=== PATIENT | female | born 2005 | race African-American/Black ===

== ENCOUNTER 2023-07-16 11:53 | Observation (INO) | payer BC, SELFPAY ==
[2023-07-16 12:10] VITALS: BMI 26.4
--- NOTE | 2023-07-16 12:10 | OBADM ---
This patient, Rahel Calderon, admitted to the OB room OB Post 113 for observation. Patient/family oriented to hospital policies and general routines including ID bracelet, bed and alarms, visiting hours, pain management, procedures, bathroom and other care routines, personal items, smoking policy, room service/diet, and visiting hours. Patient/Family are encouraged to report perceived risks to care and to ask questions if they do not understand what they are told or what they should do.
[2023-07-16 14:00] VITALS: BP 145/86; PULSE 116
[2023-07-16 14:15] VITALS: BP 123/85; PULSE 102
[2023-07-16 14:30] VITALS: BP 138/98; PULSE 108
--- NOTE | 2023-07-16 14:32 | PC.NURSE ---
Dr. Shepherd informed of 2 variable decels down to 120 with baseline of 145 around 1300 in otherwise totally reactive tracing. Order received to discharge pt to home.
[2023-07-16 14:36] VITALS: BP 140/84; PULSE 105
--- NOTE | 2023-07-17 13:00 | PM.OBTRLD ---
OB - Triage/Final Diagnosis Visit Information Comments/Additional reasons for admission: I have assessed the risk for this patient, Rahel Calderon, and determined that she would benefit from observation care. Evaluation Vital signs: Vital Signs - 24 hr 07/16/23 14:00 07/16/23 14:15 07/16/23 14:30 Pulse Rate 116 H 102 H 108 H Blood Pressure 145/86 H 123/85 138/98 H 07/16/23 14:36 Pulse Rate 105 H Blood Pressure 140/84 Final Diagnosis (1) Variable deceleration: Status: Acute
== END 2023-07-16 15:13 | disposition home or self-care (01) ==
PROVIDERS: Admitting Provider Obstetrics & Gynecology; Visit Provider Obstetrics & Gynecology
DX: O36.8330 Maternal care for abnormalities of the fetal heart rate or rhythm, third trimester, not applicable or unspecified (principal); Z3A.35 35 weeks gestation of pregnancy
CPT/HCPCS: G0378; G0379

== ENCOUNTER 2023-07-28 06:27 | Inpatient (IN) | payer BC, SELFPAY ==
[2023-07-28] VITALS (56 sets, daily range): BP systolic 109–150; BP diastolic 73–118; PULSE 66–151; RESP 16; TEMP 36.1–38.2; O2SAT 85–100; BMI 26.8
--- NOTE | 2023-07-28 07:18 | LDADM ---
This patient, Rahel Calderon, was admitted to Labor/Delivery/Recovery 105 on 07/28/23 at 06:27. Plans for labor, pain management and were discussed with patient. Patient/family oriented to hospital policies and general routines including ID bracelet, bed and alarms, visiting hours, pain management, procedures, bathroom and other care routines, personal items, smoking policy, room service/diet and guest tray routines, security routines, and visiting hours. Patient/Family are encouraged to report perceived risks to care and to ask questions if they do not understand what they are told or what they should do. See OBIX for further documentation.
[2023-07-28 07:40] LABS: Basophils Percent Auto 0.4 % (0.2-1.2); Eosinophils Absolute Auto 0.1 K/mm3 (0-0.3); Eosinophils Percent Auto 0.7 % (0-4.4); Hematocrit 31.1 % (37.0-47.0); Hemoglobin 10.7 g/dL (12.0-15.0); Immature Granulocyte Absolute 0.06 K/mm3 (0.00-0.031); Immature Granulocyte Percent A 0.5 % (0-0.5); Lymphocytes Absolute Auto 2.43 K/mm3 (0.9-3.2); Mean Corpuscular HGB Conc 34.4 g/dl (32-36); Mean Corpuscular Volume 75.7 fl (80-100); Mean Platelet Volume 10.9 fl (7.4-10.4); Monocytes Absolute Auto 1.1 K/mm3 (0.1-0.6); Neutrophils Absolute Auto 7.3 K/mm3 (1.3-6.7); Neutrophils Percent Auto 66.4 % (45.5-73.1); Platelet Count Result 299 k/mm3 (150-375); Red Blood Count 4.11 M/mm3 (4.2-5.4); Red Cell Distribution Width 15.3 % (11.5-14.5)
[2023-07-28 07:58] LABS: Alanine Aminotransferase 16 U/L (6-35); Albumin Level 3.8 g/dL (3.7-5.6); Alkaline Phosphatase 163 U/L (45-116); Anion Gap 9 mmol/L (8-16); Aspartate Amino Transferase 23 U/L (14-36); Bilirubin,Total 0.3 mg/dL (0.2-1.3); Blood Urea Nitrogen 4 mg/dL (8-21); Carbon Dioxide 22 mmol/L (22-30); Chloride 107 mmol/L (98-107); Estimated Glomerular Filt Rate > 60; Glucose 93 mg/dL (65-110); Potassium 3.3 mmol/L (3.4-5.0); Sodium 138 mmol/L (134-143); Uric Acid 4.4 mg/dL (3.0-5.9)
[2023-07-28 09:23] LABS: Amphetamine Screen Urine Negative (Negative); Barbiturate Screen Urine Negative (Negative); Benzodiazepines Screen Urine Negative (Negative); Cannabinoid Screen Urine Positive (Negative); Cocaine Screen Urine Negative (Negative); Methadone Screen Urine Negative (Negative); Opiate Screen Urine Negative (Negative); Phencyclidine Screen Urine Negative (Negative)
[2023-07-28] MEDS: miSOPROStol 25 MCG TABLET 50 MCG PO (09:52)
[2023-07-28] MEDS: LACTATED RINGERS 1,000 ML 125 ML IV CONT ×2 (12:32→15:53)
[2023-07-28 14:31] LABS: Rapid Plasma Reagin Non-Reactive (NonReactive)
[2023-07-28] MEDS: OXYTOCIN 30 UNITS/NS 500 ML 30 UNITS/500 ML BAG IV CONT (14:38)
--- NOTE | 2023-07-28 16:16 | WPDANESEPP ---
Anes - Eval Pre Procedure Procedure: labor epidural Date/Time: 07/28/23 16:16 Preop Diagnosis: labor pain Pre Op Diagnosis: Induction of Labor Patient Data Age: 17 Gender: F Height: 1.63 m Weight: 70.9 kg Last Vital Signs Temp 36.4 C L 07/28/23 10:15 Pulse 88 07/28/23 16:01 Resp 16 07/28/23 10:15 BP 136/87 07/28/23 16:01 Pulse Ox 100 07/28/23 06:58 O2 Del Method Room Air 07/28/23 06:56 Allergies Allergy/AdvReac Type Severity Reaction Status Date / Time No Known Allergies Allergy Verified 07/15/23 12:17 Home Medications Medication Instructions Recorded Confirmed Type vits no.126-ferrous fum 1 tablet PO DAILY 07/15/23 07/15/23 History 28 mg iron-folic acid 800 mcg tablet (Classic ) Laboratory Tests 07/28/23 07/28/23 07:26 08:57 WBC 11.0 H K/mm3 (4.5-10.0) RBC 4.11 L M/mm3 (4.2-5.4) Hgb 10.7 L g/dL (12.0-15.0) Hct 31.1 L % (37.0-47.0) MCV 75.7 L fl (80-100) MCH 26.0 pg (26-34) MCHC 34.4 g/dl (32-36) RDW 15.3 H % (11.5-14.5) Plt Count 299 k/mm3 (150-375) MPV 10.9 H fl (7.4-10.4) Immature Gran % (Auto) 0.5 % (0-0.5) Neut % (Auto) 66.4 % (45.5-73.1) Lymph % (Auto) 22.0 % (18.3-44.2) [place] % (Auto) 10.0 H % (2.6-8.5) Eos % (Auto) 0.7 % (0-4.4) Baso % (Auto) 0.4 % (0.2-1.2) Lymph # (Auto) 2.43 K/mm3 (0.9-3.2) [place] # (Auto) 1.1 H K/mm3 (0.1-0.6) Eos # (Auto) 0.1 K/mm3 (0-0.3) Baso # (Auto) 0.0 K/mm3 (0.0-0.1) Abs Immat Gran (auto) 0.06 H K/mm3 (0.00-0.031) Absolute Neuts (auto) 7.3 H K/mm3 (1.3-6.7) Absolute Nucleated RBC 0.0 K/mm3 (0.0-0.012) Nucleated RBC % 0.0 % (0.0-0.2) Sodium 138 mmol/L (134-143) Potassium 3.3 L mmol/L (3.4-5.0) Chloride 107 mmol/L (98-107) Carbon Dioxide 22 mmol/L (22-30) Anion Gap 9 mmol/L (8-16) BUN 4 L mg/dL (8-21) Creatinine 0.50 L mg/dL (0.7-1.0) Estim Creat Clear Calc Not Reportable Estimated GFR > 60 (59 - ) Glucose 93 mg/dL (65-110) Uric Acid 4.4 mg/dL (3.0-5.9) Calcium 9.0 mg/dL (8.9-10.7) Total Bilirubin 0.3 mg/dL (0.2-1.3) AST 23 U/L (14-36) ALT 16 U/L (6-35) Alkaline Phosphatase 163 H U/L (45-116) Total Protein 7.0 g/dL (6.3-8.6) Albumin 3.8 g/dL (3.7-5.6) Urine Opiates Screen Negative (Negative) Urine Methadone Screen Negative (Negative) Ur Barbiturates Screen Negative (Negative) Ur Phencyclidine Scrn Negative (Negative) Ur Amphetamine Screen Negative (Negative) U Benzodiazepines Scrn Negative (Negative) Urine Cocaine Screen Negative (Negative) U Cannabinoids Screen Positive A (Negative) RPR Non-reactive (NonReactive) Blood Type B Positive Antibody Screen Positive Antibody Identification Pending Antigen Identification Pending DONELL, IgG Interpret Not Performed DONELL, Poly Interpret Negative DONELL, Complement Interp Not Performed Patient hx anesthesia problems: none Family hx anesthesia problems: none Results Review: All pre-operative results and documents have been reviewed as part of the pre-operative evaluation. FORMERLY [facility], [facility] Family History Family History Other No pertinent family history Social History Social History Smoking status: Never smoker Second hand tobacco smoke exposure: No Substance use: never Do You Feel Safe in your Home?: Yes Lack of Transportation: No Lack of Food: Never True Current Housing: I Have Housing Concerned About Future Housing: No Difficult
--- NOTE | 2023-07-28 20:14 | PM.IMHP ---
H&P: HPI History of Present Illness Date/Time: 07/28/23 08:14 Chief Complaint: medical induction of labor Narrative: Patient presents for medical induction of labor, indicated for gestational hypertension. She was diagnosed at 34 weeks, labwork has been normal with no evidence of proteinuria. She denies headaches, vision changes, chest pain, dyspnea, RUQ pain or epigastric pain. otherwise complicated by hx of anxiety, HSV, sickle cell trait, and posterior accessory lobe. Review of Systems Review of Systems: All systems reviewed & are unremarkable except as noted in HPI and below PMFSH Family History Family History Other No pertinent family history Social History Social History Smoking status: Never smoker Second hand tobacco smoke exposure: No Substance use: never Do You Feel Safe in your Home?: Yes Lack of Transportation: No Lack of Food: Never True Current Housing: I Have Housing Concerned About Future Housing: No Difficulty Paying Gas/Electric Bills: No Difficulty Paying for Meds: No Currently Unemployed: YES Education: High School Diploma/GED Difficulty w/ Childcare or Family Care: No Spiritual care concerns: No Meds Home Medications and Allergies Home Medications Medication Instructions Recorded Confirmed Type vits no.126-ferrous fum 1 tablet PO DAILY 07/15/23 07/15/23 History 28 mg iron-folic acid 800 mcg tablet (Classic ) Allergies Allergy/AdvReac Type Severity Reaction Status Date / Time No Known Allergies Allergy Verified 07/15/23 12:17 Vital Signs Vital Signs - 24 hr 07/28/23 06:56 07/28/23 06:58 07/28/23 07:39 Temperature 97.4 F L Pulse Rate 96 Respiratory Rate 16 Blood Pressure 127/91 H Pulse Oximetry 100 Oxygen Delivery Room Air 07/28/23 10:09 07/28/23 10:15 07/28/23 11:00 Temperature 97.5 F L Pulse Rate 81 83 Respiratory Rate 16 Blood Pressure 135/86 117/81 Pulse Oximetry Oxygen Delivery 07/28/23 12:00 07/28/23 14:00 07/28/23 15:00 Temperature Pulse Rate 83 92 91 Respiratory Rate Blood Pressure 135/76 132/93 H 128/86 Pulse Oximetry Oxygen Delivery 07/28/23 16:01 07/28/23 16:18 07/28/23 16:19 Temperature Pulse Rate 88 113 H Respiratory Rate Blood Pressure 136/87 150/91 H Pulse Oximetry 85 L 99 Oxygen Delivery 07/28/23 16:20 07/28/23 16:25 07/28/23 16:26 Temperature Pulse Rate Respiratory Rate Blood Pressure Pulse Oximetry 100 100 100 Oxygen Delivery 07/28/23 16:27 07/28/23 16:31 07/28/23 16:33 Temperature Pulse Rate Respiratory Rate Blood Pressure Pulse Oximetry 99 100 100 Oxygen Delivery 07/28/23 16:34 07/28/23 16:38 07/28/23 16:39 Temperature Pulse Rate 83 85 Respiratory Rate Blood Pressure 138/90 132/82 Pulse Oximetry 100 100 Oxygen Delivery 07/28/23 16:39 07/28/23 16:39 07/28/23 16:41 Temperature Pulse Rate 90 Respiratory Rate Blood Pressure 130/83 Pulse Oximetry 100 100 Oxygen Delivery 07/28/23 16:42 07/28/23 16:44 07/28/23 16:45 Temperature Pulse Rate 123 H 82 71 Respiratory Rate Blood Pressure 133/82 113/81 136/83 Pulse Oximetry 100 Oxygen Delivery 07/28/23 16:49 07/28/23 16:54 07/28/23 16:59 Temperature Pulse Rate 87 Respiratory Rate Blood Pressure 137/89 Pulse Oximetry 100 100 99 Oxygen Delivery 07/28/23 17:00 07/28/23 17:15 07/28/23 17:30 Temperature Pulse Rate 86 84 88 Respiratory Rate Blood Pressure 130/92 H 138/96 H 144/99 H Pulse Oximetry 95 Oxygen Delivery 07/28/23 17:50 07/28/23 17:51 07/28/23 17:53 Temperature Pulse Rate 90 96 70 Respiratory Rate Blood Pressure 142/79 H 127/88 115/93 H Pulse Oximetry Oxygen Delivery 07/28/23 18:17 07/28/23 18:3
--- NOTE | 2023-07-28 20:18 | PM.OBPNLAB ---
Pain Control Date/time seen: 07/28/23 4211 Comments: Comfortable with epidural Pelvic Exam Dilation (cm): 4 Effacement (%): 70 station: -2 Amniotic membrane status: Ruptured Status status: Category l Assessment and Plan Comments: FHR Category I AROM performed with clear fluid /-2 Continue induction, will start pitocin PRN
[2023-07-29] VITALS (19 sets, daily range): BP systolic 119–157; BP diastolic 71–145; PULSE 76–118; RESP 16–20; TEMP 36.2–37.4; O2SAT 97–100
[2023-07-29] MEDS: OXYTOCIN 30 UNITS/NS 500 ML 30 UNITS/500 ML BAG 999 UNITS IV CONT
[2023-07-29] MEDS: miSOPROStol 200 MCG TABLET 800 MCG RECTAL (00:10)
[2023-07-29] MEDS: OXYTOCIN 30 UNITS/NS 500 ML 30 UNITS/500 ML BAG 125 UNITS IV CONT (00:36)
--- NOTE | 2023-07-29 01:08 | P.PCNOB_ITS ---
OB - Vaginal Delivery Note Procedure Delivery date: 07/29/23 Events: Gestational Hypertension Induction method: Per Misoprostol Protocol Delivery augmentation: Rupture of Membranes and Pitocin Delivery monitor: External FHT and External Uterine Route of delivery: Episiotomy description: None Laceration Description: Perineal - 1st Degree Delivery repair: vicryl Specimen: No Quantitative Blood Loss (ml): 150 Anesthesia type: Epidural Disposition: Floor Complications: No immediate complications Narrative: See H&P and notes for details on patient's admission and labor. She progressed to complete cervical dilation and at the appropriate time began pushing. With adequate expulsive efforts by the mother, the baby's head was delivered without difficulty. Nuchal cord was not present. The baby's left shoulder was anterior and delivered under the pubic symphysis without difficulty. The posterior shoulder and the rest of the baby delivered without difficulty. The umbilical cord was doubly clamped and cut after 90 seconds of delayed cord clamping. Care of the infant was then assumed by the nursing staff. At the end of the perineal repair, mild uterine atony was noted and cytotec 800mcg was placed rectally with improvement in uterine tone. Mother and are at this time in stable condition and doing well. [place] [facility] Weeks of gestation at delivery: 37 Infant gender: Female Weight (pounds): 7 Weight (ounces): 12 presentation: vertex position: Left Occiput Posterior Placenta delivery description: Expressed Cord Vessel Description: 3 Vessels
--- NOTE | 2023-07-29 02:27 | PC.NURSE ---
Patient transferred to post room #291 per wheelchair from labor and delivery. Support person present. Oriented to unit, room, information board, rooming in, admission packet and security measures. Patient verbalizes understanding.
[2023-07-29] MEDS: ONDANSETRON INJ 4 MG/2 ML VIAL IV PUSH (02:35)
--- NOTE | 2023-07-29 08:17 | PM.OBPNVD ---
OB - PN: Subj Subjective Date/time seen: 07/29/23 08:17 Interval history: PPD#1 Doing well, pain well controlled, minimal cramping Normal lochia No fevers or chills OB - PN: Obj Data Labs 07/28/23 07:26 07/28/23 07:26 Labs: Laboratory Results - last 24 hr 07/28/23 07/28/23 07:26 08:57 Urine Opiates Screen Negative Urine Methadone Screen Negative Ur Barbiturates Screen Negative Ur Phencyclidine Scrn Negative Ur Amphetamine Screen Negative U Benzodiazepines Scrn Negative Urine Cocaine Screen Negative U Cannabinoids Screen Positive A RPR Non-reactive Blood Type B Positive Antibody Screen Positive DONELL, IgG Interpret Not Performed DONELL, Poly Interpret Negative DONELL, Complement Interp Not Performed OB - PN A/P Assessment and Plan (1) Gestational hypertension: Code(s): O13.9 - Gestational [-induced] hypertension without significant proteinuria, unspecified trimester Status: Acute Assessment and Plan: Asymptomatic, BP mild range to normotensive Continue to monitor for development of preeclampsia with severe features (2) (spontaneous vaginal delivery): Code(s): O80 - Encounter for full-term uncomplicated delivery Status: Acute Plan day: 1 Plan: routine care Time Spent With Patient Time: Total time spent is greater than 50% in coordination of care (as documented) at patient's floor/unit and/or counseling patient: Review of Systems Review of Systems: All systems reviewed & are unremarkable except as noted in HPI and below Exam Const: General: comfortable and no acute distress HENMT: Mouth: Yes moist mucous membranes Eyes: General: appearance normal, both eyes and all related structures Resp: Effort & Inspection: normal respiratory effort Cardio: Rate: regular rate Skin: General skin exam: normal color Neuro: Sensory Exam: normal sensation Extrem: General: normal to inspection Psych: Mental Status: mental status grossly normal
--- NOTE | 2023-07-29 11:14 | PC.NURSE ---
[id number] Introductions were made, then consulted with patient to assess needs related to . Discussed with mother her?plans to feed?her infant, the?experience so far, infant is [id number] and mother states has fluid that she needs to get out . Resources provided for inpatient and outpatient services with the feeding sheet, mom/baby guide and name written on the communication board. Mother voiced understanding of information and will call if there is a request for assistance. [id number] Introductions were made, then consulted with patient to assess needs related to . Mother led the conversation with her?plans to feed?her infant and the?experience so far. Encouraged understanding of the benefits of skin to skin (demonstrating unwrapping infant and placing upright on her chest), stimulating with massage touch, changing positions to encourage wakefulness, how to watch for early feeding cues, responsive feeding, feeding on demand (aiming for 8-12 times in 24 hours, about every 2-3 hours), milk production, building/maintaining a milk supply, duration of feeding, signs of adequate intake/output and how to record on the feeding sheet. Mother works well with her infant with encouragement, education and desires to attempt laid-back position again like she did last night. After infant attempted we also reviewed positioning and ear, shoulder, hip alignment, supporting the breast to facilitate a deep latch, asymmetrical latch (off-center), leading with the chin with a big, open, wide gape and mother encouraged to let infant come to the breast as see facilitate without moving her body and breast to the infant. Mother hand expressed and finger fed colostrum to her , then latched optimally to the right breast in laid-back position. Education given to the mother of how to visualize the suckling (with good rocking jaw motion), swallows (dropping of the lower jaw) and how to listen for drinking at the breast (the ka sound) and demonstrated frequent swallowing. was able to maintain latch without pain to mother protecting the nipple with optimal positioning and latching. Reviewed comfort measures of healing with a warm, wet washcloth to rinse breast, then leave open to air-dry, good handwashing when or touching the breast/nipples to prevent infection. Mother voiced understanding of skin to skin, stimulating with massage touch, responsive feedings, hand expressed colostrum, talking to infant to encourage if it has been 2 -2.5 hours since the start of the last , to call if does not latch, or if there is discomfort with . After with no misshape to the nipple, infant remained [id number] on mother to encourage frequent feeding at the breast. Resources used for education were facilitated with the visual educational handouts, tool, mom and baby guide. Inpatient/outpatient resources provided with feeding sheet, name written on the communication board, and the mom/baby guide. Mother voiced understanding of information, demonstrated learning and will call if there is a request for assistance.
--- NOTE | 2023-07-29 11:37 | PCCCNOTE ---
Care Coordination. Received screening referral for pt. due to substance use. Pt. UDS positive for marijuana and baby not tested. She denies any substance use concerns surrounding use. She does not feel that it is an issue and reports does not use that much. She plans to return home with her mother. She reports FOB wants to be involved, but recently got involved in some legal trouble. Pt. is setup with WIC. She had baby shower and has all necessary supplies. She reports having good family support. Pt. denies any center or resource information needed. Spoke with Anna Ruiz at [facility] Hotline and she took pt.'s situation as information only (Intake ID# [id number]). No further CC needs.
--- NOTE | 2023-07-29 13:43 | WPDANLDPN2 ---
Anes-Prog Note L&D Date/Time: 07/29/23 13:43 Comfortable throughout: labor and delivery Neuraxial method: epidural Epidural/Spinal procedure site: clean & non-tender Neuro status: Neuro function grossly intact. Cardiovascular status: normal Respiratory status: normal Airway patency: baseline Mental status: baseline Post-Op hydration status: normal Vital Signs: Last Vital Signs Temp 36.9 C 07/29/23 12:05 Pulse 87 07/29/23 12:05 Resp 16 07/29/23 12:05 BP 134/84 07/29/23 12:05 Pulse Ox 99 07/29/23 12:05 O2 Del Method Room Air 07/28/23 06:56 Pain score (VAS): 07/09 I/O: Intake & Output 07/28/23 07/29/23 07/29/23 23:59 07:59 15:59 Intake Total 2000 500 Output Total 500 Balance 1500 500 Post-procedural complaints: none Patient feedback: Patient satisfied with anesthetic care.
[2023-07-29] MEDS: BENZOCAINE 20% AER SPR (*SP) 56 GM CAN 1 SPRAY TOPICAL (14:40)
[2023-07-29] MEDS: WITCH HAZEL 40 PADS 1 PAD TOPICAL (14:40)
[2023-07-29] MEDS: DOCUSATE SODIUM 100 MG CAPSULE PO (14:40)
[2023-07-29] MEDS: MULTIVIT/MIN/PREN/FOL AC/IRON TABLET 1 TAB PO (14:40)
[2023-07-29] MEDS: IBUPROFEN 600 MG TABLET PO (14:40)
--- NOTE | 2023-07-29 17:09 | PC.NURSE ---
[id number] Consulted with patient to assess needs related to . Discussed with mother her successes, concerns and any questions she has. We reviewed working with the , supporting breast, protecting her nipples with an optimal deep latch, good positioning, and good hand washing. After some [id number] time with mother, stimulating for wakefulness to breastfeed along with common 1st 24 hour, 2nd 24 hour, and 37 EGA behaviors, then when feeding cues are visualized we reviewed positioning and alignment, supporting breast, off-centered (asymmetrical latch) and leading with the chin with big, open, wide gape. latched optimally to the right breast in football position. Education given to the mother and grandmother of how to visualize the suckling (with good rocking jaw motion) swallows (dropping of the lower jaw) and how to listen for drinking at the breast (the ka sound) and infant demonstrated appropriate suck/swallow ratios. The was able to maintain latch without discomfort to mother. Nipple care reviewed with optimal latch, good positioning and using clean hands when touching her breast. Mother voiced understanding of the education shared, to call for assistance if the infant does not latch or if there is discomfort with . Reported to the Primary RN.
[2023-07-30] VITALS: BP 109/62; PULSE 67
[2023-07-30 05:35] VITALS: BP 126/76; PULSE 67
[2023-07-30 06:02] LABS: Hematocrit 31.7 % (37.0-47.0); Hemoglobin 10.8 g/dL (12.0-15.0)
[2023-07-30] MEDS: IBUPROFEN 600 MG TABLET PO (08:16)
[2023-07-30] MEDS: MULTIVIT/MIN/PREN/FOL AC/IRON TABLET 1 TAB PO (08:16)
[2023-07-30 08:20] VITALS: BP 134/91; PULSE 93; RESP 18; TEMP 36.6; O2SAT 100
--- NOTE | 2023-07-30 09:37 | PC.NURSE ---
Patient instructed on viewing the discharge video Mother & Baby Care, The First Two Weeks . Patient was given the opportunity and encouraged to ask questions. Patient verbalized understanding of information shared and has been given the mother/baby guide for home reference.
--- NOTE | 2023-07-30 11:06 | PM.OBPNVD ---
OB - PN: Subj Subjective Date/time seen: 07/30/23 11:06 Interval history: PPD#2 Doing well, pain well controlled, minimal cramping Normal lochia , doing well No fevers or chills Ready for discharge home today OB - PN: Obj Data Labs 07/30/23 05:39 07/28/23 07:26 Labs: Laboratory Results - last 24 hr 07/28/23 07/28/23 07/30/23 07:26 07:26 05:39 Hgb 10.8 L Hct 31.7 L Antibody Identification Anti-Kenneth A Anti-Kenneth B Antigen Identification TNP OB - PN A/P Assessment and Plan (1) Gestational hypertension: Code(s): O13.9 - Gestational [-induced] hypertension without significant proteinuria, unspecified trimester Status: Acute Plan day: 2 Plan: routine care and discharge home Time Spent With Patient Time: Total time spent is greater than 50% in coordination of care (as documented) at patient's floor/unit and/or counseling patient: Review of Systems Review of Systems: All systems reviewed & are unremarkable except as noted in HPI and below Exam Const: General: comfortable and no acute distress HENMT: Mouth: Yes moist mucous membranes Eyes: General: appearance normal, both eyes and all related structures Resp: Effort & Inspection: normal respiratory effort Cardio: Rate: regular rate Skin: General skin exam: normal color Neuro: Sensory Exam: normal sensation Extrem: General: normal to inspection Psych: Mental Status: mental status grossly normal
--- NOTE | 2023-07-30 11:09 | PM.OBDSVD ---
DS: Admitting Diagnosis Discharge Date 07/30/23 Admitting Diagnosis gestational hypertension, medical induction of labor DS: Discharge Diagnosis Discharge Diagnosis (1) (spontaneous vaginal delivery): Code(s): O80 - Encounter for full-term uncomplicated delivery Status: Acute (2) Gestational hypertension: Qualifiers: Trimester: third trimester Qualified Code(s): O13.3 - Gestational [-induced] hypertension without significant proteinuria, third trimester Code(s): O13.9 - Gestational [-induced] hypertension without significant proteinuria, unspecified trimester Status: Acute OB - DS: Summary OB Procedures : None OB Procedures Intrapartum: Spontaneous Vag Delivery OB Procedures: : None Peripartum Data Laceration Description: Perineal - 1st Degree Episiotomy description: None Time Spent with Patient Time attestation: Total time spent providing and/or coordinating discharge services: DS: Data Data Completed and Pending Pending studies at discharge: Pending at discharge 07/29/23 01:50 Surgical [PTH] Routine Labs on day of discharge: Labs from last 24 hours 07/30/23 07/28/23 07/28/23 05:39 07:26 07:26 Hgb 10.8 L Hct 31.7 L Antibody Identification Anti-Kenneth B Anti-Kenneth A Antigen Identification TNP Discharge Plan Discharge Attending physician on discharge: Ralph Shepherd Discharging Clinician: Ralph Shepherd Patient Disposition: Home, Self-Care Activity: may shower and pelvic rest Diet: as tolerated Patient Instructions: Antibiotic Form Stand Alone Forms: General Discharge Information Follow-up/Referrals: Ralph Shepherd MD [Physician] - 1 Week Discharge Medications: Continued Classic 28 mg iron- 800 mcg Tablet 1 tablet PO DAILY Date of admission: 07/28/23 06:27 Primary Care Provider: PHYSICIAN,YOUTH TEACHER Admitting Provider: Ralph Shepherd Attending physician on admission: Ralph Shepherd Condition: Stable
--- NOTE | 2023-07-30 17:33 | PC.NURSE ---
[id number] Purposefully rounded to assess for needs. Mother is holding a swaddled infant waiting for me . Reminded and encouraged understanding of the benefits of skin to skin (demonstrating unwrapping and placing upright on her chest), stimulating with massage touch, changing positions to encourage wakefulness, how to watch for early feeding cues, responsive feeding, feeding on demand (aiming for 8-12 times in 24 hours, about every 2-3 hours, however; infant can eat every 1-3 not to go past 5 hours), milk production, building/maintaining a milk supply, duration of feeding, signs of adequate intake/output and how to record on the feeding sheet. Mother works well with her with encouragement and education. Reviewed positioning and ear, shoulder, hip alignment, supporting the breast to facilitate a deep latch, asymmetrical latch (off-center), leading with the chin with a big, open, wide gape and body close to mother. latched optimally to the right breast in cross cradle position. Education given to the mother of how to visualize the suckling (with good rocking jaw motion), swallows (dropping of the lower jaw) and how to listen for drinking at the breast (the ka sound) which infant demonstrated well. was able to maintain latch without pain to mother protecting the nipple with optimal positioning and latching. Reviewed comfort measures of healing with a warm, wet washcloth to rinse breast, then leave open to air-dry, good handwashing when or touching the breast/nipples to prevent infection. Mother led the conversation with her experience so far, plan to feed her , and her ability to independently latch optimally without discomfort. Reminded mother to use good handwashing technique to prevent infection. Mother is feeding appropriately for growth of and understands stimulating to eat if needed. has had appropriate feedings in the last 24 hours meets the outcomes for weight, output, blood sugar and jaundice at this time. Mother is confident to continue effectively her at home and demonstrates latching her with minimal assistance to the right breast using cross cradle. Reinforced understanding of milk production, transition of milk, signs of adequate intake, transition of stool, prevention/relief of engorgement, plugged ducts, mastitis, responsive watching for feeding cues, the different methods of stimulating infant to breastfeed 1-3 hours after the start of the last feeding, community resources, and when to call a provider using the resource of the mom and baby guide. Mother and Grandmother voiced understanding of the education shared.
[2023-07-31 08:34] VITALS: BP 124/86; PULSE 87; RESP 18; TEMP 37; O2SAT 100
== END 2023-07-30 14:21 | disposition home or self-care (01) | DRG 806 ==
LOC: ANHLDR 06:31 → ANHOB2 07-29 02:29
PROVIDERS: Admitting Provider Obstetrics & Gynecology; Visit Provider Obstetrics & Gynecology
DX: O13.4 Gestational [pregnancy-induced] hypertension without significant proteinuria, complicating childbirth (principal); O75.2 Pyrexia during labor, not elsewhere classified; Z37.0 Single live birth; D57.3 Sickle-cell trait; O70.0 First degree perineal laceration during delivery; O43.193 Other malformation of placenta, third trimester; Z3A.34 34 weeks gestation of pregnancy
CPT/HCPCS: 36415; 80053; 80307; 84550; 85014; 85018; 85025; 86592; 86850; 86870; 86880; 86900; 86901; 86902; 86905; 86977; 88307; A9270; J2405; J2590; J2795; J7120